=== PATIENT | female | born 1985 | race Caucasian/White ===

== ENCOUNTER 2020-03-14 07:07 | Outpatient (CLI) | payer OTHER, SELFPAY | END 2020-03-14 07:08 | disposition home or self-care (01) | LOC: ANHCOVIDDT 07:08 | PROVIDERS: PCP Family Medicine; Visit Provider Internal Medicine Gastroenterology | DX: Z01.818 Encounter for other preprocedural examination (principal); Z11.59 Encounter for screening for other viral diseases | CPT/HCPCS: 87635; C9803; U0003 ==

== ENCOUNTER 2020-03-16 00:31 | Day surgery (SDC) | payer OTHER, SELFPAY ==
[2020-03-10 13:39] VITALS: BMI 46.5
[2020-03-16 07:51] VITALS: BP 127/82; PULSE 79; RESP 18; TEMP 36.6; O2SAT 97
[2020-03-16] MEDS: LACTATED RINGERS 1,000 ML 150 ML IV CONT (08:17)
--- NOTE | 2020-03-16 08:23 | WPDANESEPPF ---
Anes - Initial Pre Proc Eval Procedure: Operation Date: 03/16/20 08:30 Proposed Procedures p Esophagogastroduodenoscopy - Donis Hollins MD Date/Time: 03/16/20 08:23 Surgeon: Donis Hollins MD Pre Op Diagnosis: Abdominal pain Patient Data Age: 34 Gender: F Height: 5 ft 5 in Weight: 129.7 kg Last Vital Signs Temp 97.9 F 03/16/20 07:51 Pulse 79 03/16/20 07:51 Resp 18 03/16/20 07:51 BP 127/82 03/16/20 07:51 Pulse Ox 97 03/16/20 07:51 Allergies Allergy/AdvReac Type Severity Reaction Status Date / Time No Known Allergies Allergy Mild Unverified 03/16/20 07:50 Home Medications Medication Instructions Recorded Confirmed Type citalopram 20 mg tablet 20 mg PO DAILY #30 tablet 02/29/20 03/10/20 Rx alprazolam 0.5 mg PO BID PRN 03/10/20 03/10/20 History Patient hx anesthesia problems: none Family hx anesthesia problems: none [facility] Past Medical History Medical History (Updated 03/07/20 @ 09:20 by Donis Hollins MD) Bloating Depression GERD (gastroesophageal reflux disease) Surgical History Surgical History (Updated 02/29/20 @ 14:12 by Subha Mai CMA) H/O removal of cyst History of cholecystectomy Social History Social History (Updated 02/29/20 @ 14:13 by Subha Mai CMA) Smoking packs per day: 0.5 Smoking cigarettes per day: 10.0 Years smoked: 18 Smoking pack-years: 9.00 Smoking status: Current every day smoker Alcohol intake: current Substance use: never Gender identity (if verbalized by the patient): Female Anes - Eval Final PreProcedure Day of Procedure 03/16/20 08:23 Patient weight: morbidly obese Heart: regular rate and rhythm Lungs: clear to auscultation Airway: Mallampati scale class III Neurological: alert and oriented Last oral intake: >/= 8 hours ASA classification: III Emergent: no Anesthetic plan: proceed Anesthesia type and monitoring: general GIVS and standard monitoring Informed Consent: The patient's anesthetic plan and its attendant risks and benefits were discussed with the patient/family/POA. Questions were solicited and answers provided to the satisfaction of the patient/family/POA.
--- NOTE | 2020-03-16 08:39 | WPDHPUPDATE1 ---
History and Physical Update Update Date/Time: 03/16/20 08:39 History and Physical has been reviewed, including an updated exam of the patient. There are NO changes in the patient's condition. Risks, benefits, and alternatives have been discussed and questions answered. Patient agrees to proceed with procedure.
[2020-03-16 08:57] VITALS: BP 136/78; PULSE 70; RESP 22; O2SAT 99
[2020-03-16 09:07] VITALS: BP 133/82; PULSE 71; RESP 20; O2SAT 96
[2020-03-16 09:17] VITALS: BP 133/84; PULSE 71; RESP 22; O2SAT 98
== END 2020-03-16 09:45 | disposition home or self-care (01) ==
PROVIDERS: PCP Family Medicine; Visit Provider Internal Medicine Gastroenterology
PROC: 0DJ08ZZ Inspection of Upper Intestinal Tract, Via Natural or Artificial Opening Endoscopic (ICD-10-PCS; CPT 43235; principal; 2020-03-16 08:30)
DX: K21.0 Gastro-esophageal reflux disease with esophagitis (principal); K44.9 Diaphragmatic hernia without obstruction or gangrene; K29.50 Unspecified chronic gastritis without bleeding; F32.9 Major depressive disorder, single episode, unspecified; F17.210 Nicotine dependence, cigarettes, uncomplicated; E66.01 Morbid (severe) obesity due to excess calories; Z68.42 Body mass index [BMI] 45.0-49.9, adult
CPT/HCPCS: 43239; 88305; J2704; J7120

== ENCOUNTER 2020-09-13 06:53 | Outpatient (NON) | payer OTHER, SELFPAY ==
[2020-09-14 14:04] LABS: SARS-CoV-2 RNA PCR Positive
== END 2020-09-13 06:54 ==
LOC: ANHCOVIDDT 07:02
PROVIDERS: PCP Family Medicine; Visit Provider Family Medicine
DX: U07.1 COVID-19 (principal)
CPT/HCPCS: 87635; C9803; U0003

== ENCOUNTER 2021-09-19 07:51 | Outpatient (CLI) | payer OTHER, SELFPAY ==
--- NOTE | ~2021-09-19 | XR_ITS ---
EXAMINATION: XR knee LT 3V DATE: 09/19/2021 08:13 INDICATION: Left knee injury. TECHNIQUE: 3 views of left knee including standing views were obtained. COMPARISON: None. FINDINGS: Bone alignment is normal. No fracture. There is mild osteoarthritis of patellofemoral komal rtment characterized by a tiny marginal osteophyte. No knee joint effusion. IMPRESSION: 1. Mild left knee osteoarthritis. Reviewed, dictated and finalized at location B. [employer] [employer]
[2021-09-19 19:16] LABS: D Dimer 0.56 ug/mL (<0.48)
== END 2021-09-19 07:52 | disposition home or self-care (01) ==
LOC: ANHBWCLAB 07:56
PROVIDERS: PCP Family Medicine; Visit Provider Family Medicine
DX: M17.12 Unilateral primary osteoarthritis, left knee (principal)
CPT/HCPCS: 36415; 73562; 85380